=== PATIENT | male | born 1980 | race Caucasian/White ===

== ENCOUNTER → 2020-11-14 | Outpatient (CLI) | payer MEDICAID ==
--- NOTE | 2020-11-14 15:29 | US ---
EXAMINATION TYPE: US liver DATE OF EXAM: 11/14/2020 COMPARISON: NONE CLINICAL HISTORY: R74.01 elevated liver enzymes. elevated liver enzymes EXAM MEASUREMENTS: Liver Length: 18.7 cm Gallbladder Wall: 0.2 cm CBD: 0.3 cm Right Kidney: 10.9 x 5.6 x 4.8 cm Technical limitations due to large amount of overlying bowel content Pancreas: Tail obscured by overlying bowel gas Liver: enlarged, attenuating Gallbladder: no evidence of stones Evidence for sonographic Hough's sign: no CBD: limited evaluation, appears wnl Right Kidney: no evidence of hydronephrosis IMPRESSION: Findings may be indicative of hepatic steatosis. Limited exam.
== END | disposition home or self-care (01) ==
LOC: RADUSWWP 07:28
PROVIDERS: ATTEND Family Medicine
DX: R74.01 Elevation of levels of liver transaminase levels (principal)
CPT/HCPCS: 76705